=== PATIENT | male | born 1990 | race Caucasian/White ===

== ENCOUNTER 2018-11-27 14:30 | Emergency (ER) | payer OTHER ==
[~2018-11-27] VITALS: Ht 165.1 cm; Wt 65.8 kg
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
--- NOTE | 2018-11-27 15:25 | NUR ---
LINCOLN MYERS AT BEDSIDE
[2018-11-27] MEDS ORDERED: CEPHALEXIN MONOHYDRATE 500 MG CAPSULE PO ONE ×2 (15:30→15:35)
[2018-11-27] MEDS ORDERED: CLINDAMYCIN HCL 150 MG CAPSULE PO ONE ×2 (15:30→15:35)
[2018-11-27] MEDS ORDERED: SULFAMETH/TRIMETH 800/160 MG 1 UDTAB TABLET PO ONE (15:30)
[2018-11-27] MEDS ORDERED: LIDOCAINE 1%-EPI 1:100,000 20 ML VIAL TP ONE (15:30)
[2018-11-27] MEDS ORDERED: LIDOCAINE 1%-EPI 1:100,000 20 ML VIAL ONE (15:34)
[2018-11-27] MEDS ORDERED: SULFAMETH/TRIMETH 800/160 MG 1 UDTAB TABLET ONE (15:35)
--- NOTE | 2018-11-27 16:00 | NUR ---
LINCOLN MYERS AT BEDSIDE FOR I&D
[2018-11-27] MEDS ORDERED: ACETAMINOPHEN 325 MG TABLET PO ONE (16:30)
[2018-11-27] MEDS ORDERED: MAG HYDROX/AL HYDROX/SIMETH 30 ML UDC PO ONE (16:30)
[2018-11-27] MEDS ORDERED: MAG HYDROX/AL HYDROX/SIMETH 30 ML UDC ONE (16:36)
[2018-11-27] MEDS ORDERED: ACETAMINOPHEN ES 500 MG TABLET ONE (16:36)
--- NOTE | 2018-11-27 16:38 | NUR ---
WOUND CARE DONE.
[2018-11-27 16:43] VITALS: BP 146/70
--- NOTE | 2018-11-27 16:43 | NUR ---
Patient discharged to home in stable condition. Written and verbal after care instructions given. Patient verbalizes understanding of instruction.
== END 2018-11-27 16:44 | disposition home or self-care (01) ==
LOC: ER 14:30
DX: L02.414 Cutaneous abscess of left upper limb (principal); L03.114 Cellulitis of left upper limb; F17.200 Nicotine dependence, unspecified, uncomplicated; F19.10 Other psychoactive substance abuse, uncomplicated
CPT/HCPCS: 10060; 73070; 99284; A6403 ×2; A6407; J3490

== ENCOUNTER 2021-03-04 04:37 | Emergency (ER) | payer OTHER ==
[~2021-03-04] VITALS: Ht 170.2 cm; Wt 68.0 kg
[2021-03-04 04:44] VITALS: BP 111/73
[2021-03-04] MEDS ORDERED: ALBU18HF2 INH (04:54)
[2021-03-04] MEDS ORDERED: CLIN300C12 PO (04:54)
--- NOTE | 2021-03-04 04:57 | NUR ---
Patient discharged to home in stable condition. Written and verbal after care instructions given. Patient verbalizes understanding of instruction. Pt ambulatory with a steady gait
== END 2021-03-04 05:01 | disposition home or self-care (01) ==
LOC: ER 04:37
DX: J45.901 Unspecified asthma with (acute) exacerbation (principal); L03.114 Cellulitis of left upper limb; F17.290 Nicotine dependence, other tobacco product, uncomplicated; Z79.2 Long term (current) use of antibiotics; Z79.899 Other long term (current) drug therapy

== ENCOUNTER 2021-06-12 13:52 | Emergency (ER) | payer OTHER ==
[~2021-06-12] VITALS: Ht 170.2 cm; Wt 70.3 kg
[~2021-06-12 13:52] MED LIST: ALBU18HF2 INH; CLIN300C12 PO
[2021-06-12 14:05] VITALS: BP 123/80
[2021-06-12] MEDS ORDERED: CLIN300C12 PO (14:18)
== END 2021-06-12 14:27 | disposition home or self-care (01) ==
LOC: ER 13:54
DX: J34.0 Abscess, furuncle and carbuncle of nose (principal); J45.909 Unspecified asthma, uncomplicated; F17.200 Nicotine dependence, unspecified, uncomplicated; Z79.51 Long term (current) use of inhaled steroids; Z79.899 Other long term (current) drug therapy

== ENCOUNTER 2021-08-20 03:33 | Emergency (ER) | payer OTHER ==
[~2021-08-20] VITALS: Ht 170.2 cm; Wt 68.0 kg
[2021-08-20 04:00] VITALS: BP 123/80
[2021-08-20] MEDS ORDERED: SULF1TAB48 PO (04:13)
[2021-08-20] MEDS ORDERED: CEPH500C2 PO (04:13)
[2021-08-20] MEDS ORDERED: SULFAMETH/TRIMETH 800/160 MG 1 UDTAB TABLET ONE (04:17)
[2021-08-20] MEDS ORDERED: CEPHALEXIN MONOHYDRATE 500 MG CAPSULE PO ONE ×2 (04:17→04:30)
[2021-08-20] MEDS ORDERED: ALBU18HF2 INH (04:22)
[2021-08-20] MEDS ORDERED: SULFAMETH/TRIMETH 800/160 MG 1 UDTAB TABLET PO ONE (04:30)
== END 2021-08-20 04:26 | disposition home or self-care (01) ==
LOC: ER 03:35
DX: L03.311 Cellulitis of abdominal wall (principal); J45.909 Unspecified asthma, uncomplicated; F17.200 Nicotine dependence, unspecified, uncomplicated; Z60.2 Problems related to living alone; Z79.899 Other long term (current) drug therapy

== ENCOUNTER 2021-12-12 21:34 | Emergency (ER) | payer OTHER ==
[~2021-12-12] VITALS: Ht 170.2 cm; Wt 68.0 kg
[~2021-12-12 21:34] MED LIST changes: +CEPH500C2 PO; +SULF1TAB48 PO
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
[2021-12-12] MEDS ORDERED: ONDANSETRON HCL/PF 4 MG/2 ML VIAL IV ONE (22:00)
[2021-12-12] MEDS ORDERED: VANCOMYCIN 1 GM in IV D5W 250 ML IV ONE (22:00)
[2021-12-12] MEDS ORDERED: MORPHINE SULFATE INJ 2 MG/ML DISP.SYRIN IV ONE (22:00)
[2021-12-12] MEDS ORDERED: ONDANSETRON HCL/PF 4 MG/2 ML VIAL ONE (22:19)
[2021-12-12] MEDS ORDERED: VANCOMYCIN 1 GM VIAL ONE (22:19)
[2021-12-12] MEDS ORDERED: MORPHINE SULFATE INJ 4 MG/ML DISP.SYRIN ONE (22:19)
[2021-12-12] MEDS ORDERED: ALBUTEROL FS 2.5 MG/0.5 ML VIAL.NEB NEB ONE (22:30)
--- NOTE | 2021-12-12 22:30 | NUR ---
BLOOD AND CULTURES COLLECTED AND SENT TO LAB
--- NOTE | 2021-12-12 22:30 | NUR ---
IV LINE ESTABLISHED, [id number]
--- NOTE | 2021-12-12 22:30 | NUR ---
COVID SWAB COLLECTED
[2021-12-12 22:38] LABS: BASOPHILS % (AUTO) 0.4 % (0.0-2.0); EOSINOPHILS % (AUTO) 1.5 % (0.0-6.0); HEMATOCRIT 38 % (39-51); HEMOGLOBIN 12.3 g/dL (13.5-17.5); LYMPHOCYTES # (AUTO) 1.8 K/uL (0.8-4.8); LYMPHOCYTES % (AUTO) 18.3 % (20.0-44.0); MEAN CORPUSCULAR HGB CONC 33 g/dl (31.0-36.0); MEAN CORPUSCULAR VOLUME 89 fL (80-96); MONOCYTES # (AUTO) 0.9 K/uL (0.1-1.30); MONOCYTES % (AUTO) 9.3 % (2.0-12.0); NEUTROPHILS % (AUTO) 70.5 % (43.0-81.0); PLATELET COUNT (AUTO) 262 K/uL (150-450); RED BLOOD CELL COUNT(AUTO) 4.24 MIL/uL (4.5-6.0)
[2021-12-12 22:55] LABS: CREATININE 0.8 mg/dL (0.6-1.3); POTASSIUM 3.9 mmol/L (3.5-5.1)
[2021-12-12] MEDS ORDERED: ALBUTEROL FS 2.5 MG/0.5 ML VIAL.NEB ONE (22:57)
[2021-12-12 23:01] LABS: ALBUMIN 3.3 g/dL (3.4-5.0); BILIRUBIN,DIRECT 0.2 mg/dL (0.0-0.2); BILIRUBIN,TOTAL 0.4 mg/dL (0.2-1.0); TOTAL PROTEIN, SERUM 7.2 g/dL (6.4-8.2)
--- NOTE | 2021-12-12 23:02 | NUR ---
rt at bedside
[2021-12-12 23:55] VITALS: BP 121/72
--- NOTE | 2021-12-12 23:57 | NUR ---
RECEIVED CALL FROM LEISA YORK OF [facility]. REPORT GIVEN.
--- NOTE | 2021-12-13 00:32 | NUR ---
CHELA FROM [facility]G [address] FRIAS REPORT TO [phone]
--- NOTE | 2021-12-13 00:40 | NUR ---
REPORT GIVEN TO RICCO DE LA FUENTE AT [facility] FOR [facility], PLEASE CALL WITH ETA
--- NOTE | 2021-12-13 00:48 | NUR ---
[facility] CALLED FOR BLS GOING TO [facility] ETA - 5 MIN
--- NOTE | 2021-12-13 00:55 | NUR ---
ANBULANCE AUTH #[id number]. UPDATED [facility] DISPATCH.
--- NOTE | 2021-12-13 00:56 | NUR ---
[facility] AT BEDSIDE FOR TRANSPORTATION
[2021-12-13] MEDS ORDERED: MORPHINE SULFATE INJ 4 MG/ML DISP.SYRIN ONE (01:06)
[2021-12-13] MEDS ORDERED: MORPHINE SULFATE INJ 2 MG/ML DISP.SYRIN IV ONE (01:30)
== END 2021-12-13 01:26 | disposition short-term general hospital (02) ==
LOC: ER 21:42
DX: L03.113 Cellulitis of right upper limb (principal); S61.501A Unspecified open wound of right wrist, initial encounter; X58.XXXA Exposure to other specified factors, initial encounter; Y92.89 Other specified places as the place of occurrence of the external cause; J45.909 Unspecified asthma, uncomplicated; Z20.822 Contact with and (suspected) exposure to COVID-19; F17.200 Nicotine dependence, unspecified, uncomplicated
CPT/HCPCS: 99285; 96365; 96375; 87426; 85025; 80048; 83605; 80076; 36415; 85730; 87081; 94640; 87040 ×2; J2270 ×2; J3370; J2405; C9803